=== PATIENT | female | born 1995 | race Two or more races ===

== ENCOUNTER 2023-05-25 22:37 | Emergency (ER) | payer OTHER ==
[~2023-05-25] VITALS: Ht 160 cm; Wt 68.5 kg
== END 2023-05-26 | disposition home or self-care (01) ==
LOC: ER 22:37
DX: O03.9 Complete or unspecified spontaneous abortion without complication (principal)

== ENCOUNTER 2023-08-29 15:40 | Outpatient (CLI) | payer OTHER | END 2023-08-29 15:41 | disposition home or self-care (01) | LOC: PRENATAL 15:40 | PROVIDERS: ATTEND Obstetrics & Gynecology Maternal & Fetal Medicine | DX: O36.80X0 Pregnancy with inconclusive fetal viability, not applicable or unspecified (principal); Z36.82 Encounter for antenatal screening for nuchal translucency; Z36.9 Encounter for antenatal screening, unspecified; Z14.8 Genetic carrier of other disease; Z3A.11 11 weeks gestation of pregnancy ==

== ENCOUNTER 2023-09-16 20:19 | Emergency (ER) | payer OTHER ==
[~2023-09-16] VITALS: Ht 160 cm; Wt 68.0 kg
[2023-09-16 21:42] LABS: HEMATOCRIT 34.9 % (36.0-45.00); HEMOGLOBIN 12.1 g/dL (12.0-15.00); MEAN CELL VOLUME 92.2 fL (80.00-100.00); MEAN CORPUSCULAR HGB CONC 34.7 g/dl (32.0-36.0); PLATELET COUNT 185 K/uL (150-450); RED BLOOD COUNT 3.78 M/uL (4.00-6.00); RED CELL DISTRIBUTION WIDTH 13.6 % (11.5-14.5)
[2023-09-16 22:28] LABS: ALBUMIN 3.7 gm/dL (3.4-5.0); BILIRUBIN TOTAL 0.22 mg/dL (0.3-1.2); CALCIUM 9.1 mg/dL (8.5-10.1); CREATININE SERUM 0.56 mg/dL (0.55-1.02); GFR 127.11; GLOBULINA 3.7 G/DL (2.4-3.5); POTASSIUM 4.1 mEq/L (3.5-5.1); TOTAL PROTEIN 7.4 gm/dL (6.4-8.2)
[2023-09-16 23:47] LABS: PH,URINE 5.5 (5.0-8.0); URINE APPEARANCE Cloudy; URINE BILIRRUBIN Negative (NEGATIVE); URINE BLOOD Negative; URINE COLOR Yellow; URINE GLUCOSE Negative (NEGATIVE); URINE LEUKOCYTE Negative; URINE NITRATE Negative; URINE PROTEIN Negative (NEGATIVE)
[2023-09-16 23:50] LABS: URINE EPITHELIAL CELLS 93.8 uL (0.0-38.8); URINE WBC 11.7 uL (0.0-23.2)
[2023-09-17 00:13] LABS: URINE CRYSTALS MANY /HPF
== END 2023-09-17 01:25 | disposition home or self-care (01) ==
LOC: ER 20:19
PROVIDERS: General Practice
DX: N92.0 Excessive and frequent menstruation with regular cycle (principal); R10.2 Pelvic and perineal pain; R10.9 Unspecified abdominal pain; Z3A.14 14 weeks gestation of pregnancy

== ENCOUNTER 2024-01-23 09:28 | Outpatient (CLI) | payer OTHER ==
[~2024-01-23 09:28] MED LIST: FUSION PLUS CA1 EACH PO; PRENATAL CAPLE1 EAC1 PO
== END 2024-01-23 09:29 | disposition home or self-care (01) ==
LOC: PRENATAL 09:28
PROVIDERS: ATTEND Obstetrics & Gynecology Maternal & Fetal Medicine
DX: O26.843 Uterine size-date discrepancy, third trimester (principal); O36.8130 Decreased fetal movements, third trimester, not applicable or unspecified; O36.0930 Maternal care for other rhesus isoimmunization, third trimester, not applicable or unspecified; Z3A.32 32 weeks gestation of pregnancy

== ENCOUNTER 2024-02-24 09:41 | Inpatient (IN) | payer OTHER ==
[2024-02-24] VITALS (9 sets, daily range): BP systolic 97–117; BP diastolic 56–81
[~2024-02-24] VITALS: Ht 160 cm; Wt 73.5 kg
[2024-02-24] MEDS ORDERED: RINGERS SOLUTION,LACTATED 1,000 ML IV SCH (10:00)
[2024-02-24] MEDS ORDERED: AMPICILLIN SODIUM 2,000 MG VIAL IV ONE (10:00)
[2024-02-24] MEDS ORDERED: MISOPROSTOL 25 MCG/4 ML GEL.W.APPL VAG ONE (10:15)
[2024-02-24 10:21] LABS: HEMATOCRIT 31.7 % (36.0-45.00); MEAN CELL VOLUME 91.4 fL (80.00-100.00); MEAN CORPUSCULAR HGB CONC 34.2 g/dl (32.0-36.0); PLATELET COUNT 161 K/uL (150-450); RED BLOOD COUNT 3.47 M/uL (4.00-6.00); RED CELL DISTRIBUTION WIDTH 14.4 % (11.5-14.5)
[2024-02-24 10:24] LABS: HEMOGLOBIN 10.8 g/dL (12.0-15.00); MEAN CORPUSCULAR HEMOGLOBIN 31.1 pg (27.00-32.0); URINE APPEARANCE Clear; URINE BILIRRUBIN Negative (NEGATIVE); URINE BLOOD Negative; URINE COLOR Yellow; URINE GLUCOSE Negative (NEGATIVE); URINE KETONE Negative (NEGATIVE); URINE LEUKOCYTE Negative; URINE NITRATE Negative; URINE PROTEIN Negative (NEGATIVE); URINE UROBILINOGEN 0.2 E.U./dl
[2024-02-24 10:27] LABS: URINE BACTERIA 278.4 uL (0.0-1933); URINE EPITHELIAL CELLS 7.2 uL (0.0-38.8); URINE RBC 5.8 uL (0.0-20.8); URINE WBC 8.9 uL (0.0-23.2)
[2024-02-24 10:47] LABS: INR < 0.93; PARTIAL THROMBOPLASTIN TIME 24.6 SECONDS (22.0-34.0); PROTHROMBIN TIME 9.8 SECONDS (9.0-11.5)
[2024-02-24 11:25] LABS: ALBUMIN 2.7 gm/dL (3.4-5.0); BILIRUBIN TOTAL 0.54 mg/dL (0.3-1.2); CALCIUM 8.6 mg/dL (8.5-10.1); CREATININE SERUM 0.56 mg/dL (0.55-1.02); GFR 127.11; GLOBULINA 3.5 G/DL (2.4-3.5); TOTAL PROTEIN 6.2 gm/dL (6.4-8.2)
[2024-02-24] MEDS ORDERED: AMPICILLIN SODIUM 1,000 MG VIAL IV SCH (13:00)
[2024-02-24] MEDS ORDERED: OXYTOCIN 500 ML IV SCH (14:00)
[2024-02-24] MEDS ORDERED: MEPERIDINE HCL/PF 50 MG/ML VIAL IV NR (16:16)
[2024-02-24] MEDS ORDERED: PROMETHAZINE HCL 25 MG/ML AMPUL IV NR (16:16)
[2024-02-24] MEDS ORDERED: LIDOCAINE HCL 1% 10ML VIAL ONE (16:47)
[2024-02-24] MEDS ORDERED: OXYTOCIN 20 UNITS/1000ML RL PIGGYBAG IV ONE (16:47)
[2024-02-24] MEDS ORDERED: CHLORHEXIDINE GLUCONATE 120 ML BOTTLE TOP ONE ×2 (16:47→20:15)
[2024-02-24] MEDS ORDERED: ERYTHROMYCIN BASE 1 GM TUBE OP ONE ×2 (16:47→20:15)
[2024-02-24] MEDS ORDERED: IBUprofen 600 MG TABLET PO SCH (19:30)
[2024-02-24] MEDS ORDERED: OXYTOCIN 1,000 ML IV SCH (20:15)
[2024-02-24] MEDS ORDERED: LIDOCAINE HCL 1% 10ML VIAL IJ ONE (20:15)
[2024-02-25] VITALS: BP 116/70
[2024-02-25 04:00] VITALS: BP 110/74
[2024-02-25 08:00] VITALS: BP 114/74
[2024-02-25 11:08] LABS: HEMATOCRIT 29.5 % (36.0-45.00); MEAN CELL VOLUME 89.9 fL (80.00-100.00); MEAN CORPUSCULAR HEMOGLOBIN 30.4 pg (27.00-32.0); MEAN CORPUSCULAR HGB CONC 33.8 g/dl (32.0-36.0); PLATELET COUNT 154 K/uL (150-450); RED BLOOD COUNT 3.28 M/uL (4.00-6.00)
[2024-02-25] MEDS ORDERED: IBUprofen 600 MG TABLET PO SCH (12:00)
[2024-02-25 13:00] VITALS: BP 100/67
[2024-02-25 15:54] VITALS: BP 106/70
[2024-02-26 00:14] VITALS: BP 100/60
[2024-02-26 08:37] VITALS: BP 119/76
== END 2024-02-26 12:29 | disposition home or self-care (01) | DRG 807 ==
LOC: LDR 09:41 → OB/GYN 20:21
PROVIDERS: Obstetrics & Gynecology; Specialist; ADMIT Student in an Organized Health Care Education/Training Program; ATTEND Student in an Organized Health Care Education/Training Program
PROC: 10E0XZZ Delivery of Products of Conception, External Approach (ICD-10-PCS; principal; 2024-02-24)
PROC: 0UQG7ZZ Repair Vagina, Via Natural or Artificial Opening (ICD-10-PCS; 2024-02-24)
PROC: 4A1HXCZ Monitoring of Products of Conception, Cardiac Rate, External Approach (ICD-10-PCS; 2024-02-24)
PROC: 3E033VJ Introduction of Other Hormone into Peripheral Vein, Percutaneous Approach (ICD-10-PCS; 2024-02-24)
PROC: 3E0P7VZ Introduction of Hormone into Female Reproductive, Via Natural or Artificial Opening (ICD-10-PCS; 2024-02-24)
DX: O71.4 Obstetric high vaginal laceration alone (principal); Z37.0 Single live birth; Z3A.37 37 weeks gestation of pregnancy; Z20.822 Contact with and (suspected) exposure to COVID-19

== ENCOUNTER → 2024-11-09 | Emergency (ER) | payer OTHER ==
[~2024-11-09] VITALS: Ht 160 cm; Wt 68.0 kg
[~2024-11-09] MED LIST changes: +KETOROLAC TROMETHAMINE 60 MG VIAL IM ONE; +ORPHENADRINE CITRATE 30 MG/ML AMPUL IM ONE
== END | disposition home or self-care (01) ==
LOC: ER 10:51
DX: M62.838 Other muscle spasm (principal)